=== PATIENT | female | born 2005 | race Caucasian/White ===

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

== ENCOUNTER 2025-01-22 12:46 | Outpatient (AMB) | payer OTHER, SELFPAY ==
--- NOTE | 2025-01-22 12:52 | A.OFFPC_ITS ---
Vital Signs 01/22/25 12:59 Height 5 ft 2 in Weight 143 lb 8 oz BMI 26.2 BP 116/70 Blood Pressure Location Lt brachial Position Sitting Respiration 12 Pulse 95 Pulse Source Pulse Oximeter Temp 96.9 F Temp Source Oral Pulse Oximetry (%) 97 Oxygen Delivery Method Room Air Intake Visit Reasons: getting control medicine Intake Note: Patient here for control meds, patient is unable to give urine sample. Medical Records Specialist Required: No Is last menstrual period known: Yes Last menstrual period: 01/20/25 Allergies No Known Allergies Allergy (Verified 01/22/25 13:12) Medication List - Last Reconciled 01/22/25 by ALLAN Ibrahim- No Known Home Meds Tobacco use date assessed: 01/22/25 Dental Screening Dental Screen Date: 01/22/25 Did you have a dental visit in the last 12 months?: Yes Did you have a dental problem in the last 6 months where you did not have access to dental care?: No Was dental information given to patient?: Patient has dentist HPI HPI Comments History of Present Illness Details 19 y/o F with PATRICK, MDD, Renal stones, bi lat congenital hip dysplasia Family hx: Mom: Bipolar, Anxiety, Depression Social: Living w/ Dad, who is [employer] Physical Education Aide Health Maintenance: Tdap declined flu declined Specialists: Psychiat[facility] History of Present Illness - The patient is a 19-year-old female pr esenting with menorrhagia. - Experiences excessively heavy menstrua l bleeding since menarche at age 11. - Has been on several oral contraceptive pills to manage symptoms, with effective but temporary results. - Current medication obtained through [facility]; however, future prescriptions require physician intervention due to insurance issues. - The patient avoids alternative c ontrol methods due to fear of pain, needles, and invasive procedures. Currently on Necon 0.5-35 with good effect. Would like to cont End last period on Wednesday. Has not missed any pills. Unable to void at time of visit for urine preg. Denies having sex since last period. 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 MDD/PATRICK stable w/o meds or counseling. cont to smoke marijuana for mood and back pain. May be getting job for [employer] but needs to be free from marijuana. she will work on this, Physical Exam General: Well developed, well nourished, in no acute distress. Appears stated age. Head: Normocephalic, atraumatic. Eyes: Pupils are equal, round and reactive to light and accommodation. Conjunctivae are clear. Lungs: Clear to auscultation bilaterally. No rales, rhonchi or wheeze noted. Good air flow in all mckeon. Heart: Regular rate and rhythm. No murmurs, click, rubs or gallops are noted. Psych: Mood and affect appropriate. Discussion Notes I discussed the patient's history of menorrhagia and current management with contraceptive pills. We talked about the effectiveness of combined oral contraceptives in reducing menstrual bleeding. I acknowledged the patient's fear of needles, invasive procedures, and concerns regarding dyspareunia. I also clarified that further evaluation by a hall supervisor could elucidate anatomical reasons for her discomfort during sexual activity, though she declined referral at this time. I explained the process for renewing her control via electronic prescription to both her local and mail-order pharmacy. She was guided to reach out if issues with insurance arise, as her coverage might require mail-order pharmacy use. Lastly, I advised her to book a routine wellness visit in a few months while feel free to contact the office sooner if needed. Assessment and Plan 1. Menorrhagia: The patient has menorrha bonny controlled with combined oral contraceptives. Currently, oral contraceptives are prescribed again, addressing the insurance requirement by sending it to both her local and mail-order pharmacy. She will continue monitoring symptoms and seek follow-up care if her condition requires reassessment. 2. Dyspareunia: Dyspareunia and associat ed discomfort relate to anatomic abnormalities resisted evaluation for at this time. Recommendations include avoiding painful positions and considering evaluation if her symptoms persist. Patient is educated on potential for future examinations to offer clarity and management options. 3. Fear of Procedures: The patient's hes itations regarding alternative control methods reflect an understandable concern over procedures and is respected. Options like implants or injections are discussed, reaffirming that oral contraceptives remain suitable for her current needs. She is reassured of availability to revisit alternative methods if her preferences change. 4. Mood - cont to monitor. 5. Marijauna cessation Patient Instructions - Continue taking your control pil l as prescribed for menorrhagia. - Check with both your local and mail-or jeet pharmacy regarding your prescription to avoid any delays. - Avoid sexual positions that cause disc omfort; consider OBGYN consultation if issues persist. - Return for a routine wellness visit in May or June or sooner if you experience any new or worsening symptoms. - Contact our office if you encounter an y issues with pharmacy coverage or need adjustments. Consent Patient was informed and verbally consented to the use of an ambient scribe for clinic note documentation during this visit. Total time spent caring for the patient today was 30 minutes. This includes time spent before the visit reviewing the chart, time spent during the visit, and time spent after the visit on documentation, reviewing laboratory results, diagnostic imaging, medications, performing a medically necessary evaluation, counseling on diagnoses, care coordination, ordering appropriate tests, ordering appropriate medications, review of tests performed by other providers, reporting test results with the patient, communication with other healthcare providers. [facility] Social History Housing: House Housing Other:: Living with Dad Patient Tobacco Use Status: Never used Tobacco e-Cigarette/Vaping Use: Currently Using Second Hand Smoke Exposure: Yes service: No Current occupational status: student Current occupation: [employer]; [employer] in [place] Current occupational exposures/hazards: No Cognitive needs: No Hearing needs: No Vision needs: No Female Reproductive History Menstrual Date of last menstrual period: 01/20/25 Questionnaire PHQ-9 Over the last 2 weeks, how often have you been bothered by any of the following problems? 1. Little interest or pleasure in doing things: not at all 2. Feeling down, depressed, or hopeless: several days 3. Trouble falling or staying asleep, or sleeping too much: several days 4. Feeling tired or having little energy: several days 5. Poor appetite or overeating: more than half the days 6. Feeling bad about yourself - or that you are a failure or have let yourself or your family down: not at all 7. Trouble concentrating on things, such as reading the newspaper or watching television: not at all 8. Moving or speaking so slowly that other people could have noticed. Or the opposite - being so fidgety or restless that you have been moving around a lot more than usual: not at all 9. Thoughts that you would be better off or of hurting yourself in some way: not at all Total score: 5 Depression Screening Interpretation: Positive Depression Screening Follow-up: Existing condition and Declines treatment Depression Screening Done: Yes 36665 - PHQ-9 Billing: Yes Source: Developed by Drs. Franck Krishnan, Kristi Mcleod, Pancho Serna and colleagues, with an educational melida from [email or web address]. Thrive Questionnaire Date Thrive assessed: 01/22/25 I am a: Patient What is your living situation today?: I have a steady place to live Within the past 12 months, did the food you bought not last and you didn't have the money to get more?: Never true Within the past 12 months, did you worry whether your food would run out before you got money to buy more?: Never true Do you have trouble paying for medicines?: No Do you have trouble getting transportation to medical appointments?: No Do you have trouble paying your heating and electricity bill?: No Do you have trouble taking care of your child, family member or friend?: No Do you have trouble with day-to-day activities such as bathing, preparing meals, shopping, managing finances, etc.?: No Are you currently unemployed and looking for a job?: No Are you interested in more education?: Yes Please select the resources that you would like help with: None Currently or been in a relationship where the following occur: No concerns reported THRIVE Score: 0 AUDIT C Alcohol Use Questionnaire (AUDIT-C) 1. How often do you have a drink containing alcohol?: Never 3. How often do you have six or more drinks on one occasion?: Never Total Score: 0 Score Reviewed/Action Taken: Yes PATRICK-7 AMB Questionnaire PATRICK-7 Date PATRICK - 7 assessed: 01/22/25 Feeling nervous, anxious, or on edge: 1 = Several days Not being able to stop or control worryin = Several days Worrying too much about different things: 1 = Several days Trouble relaxin = Several days Being so restless that it is hard to sit still: 1 = Several days Becoming easily annoyed or irritable: 2 = More than half the days Feeling afraid as if something awful might happen: 0 = Not at all Total PATRICK-7 score (0-4 normal; 5-9 mild; 10-14 moderate; 15-21 severe): 7 Source: Developed by Kristi Harper Harsha, Pancho Serna and colleagues, with an educational melida from [email or web address]. PATRICK-7 Assessment Billing PATRICK-7 Assessment Tool: PATRICK-7 Assessment 46431 Physical exam (Primary Care) Vital Signs: Last Vital Signs Temp 96.9 F 01/22/25 12:59 Pulse 95 01/22/25 12:59 Resp 12 01/22/25 12:59 BP 116/70 01/22/25 12:59 Pulse Ox 97 01/22/25 12:59 Oxygen Delivery Method Room Air 01/22/25 12:59 BMI result Body Mass Index 26.2 Tobacco/Smoking Status: Tobacco use Status Tobacco use date assessed 01/22/25 01/22/25 12:53 Patient Tobacco Use Status Never used Tobacco 01/22/25 12:53 e-Cigarette/Vaping Use Currently Using 01/22/25 12:53 PHQ-9: PHQ-9 Score PHQ-9: Total score 5 01/22/25 13:19 Depression Screening Interpretation: Positive Depression Screening Follow-up: Existing condition and Declines treatment Thrive Assessment: Date of Thrive Assessment Date Thrive assessed 01/22/25 01/22/25 12:53 Currently or been in a relationship where the following occur: No concerns reported Coding Level of Care Code Est Pt Level 4 (78637) Complex EM visit Add On G2211 Diagnoses Severe episode of recurrent major depressive disorder, without psychotic features F33.2 Major depression episode severity: severe Psychotic features: without psychotic features Marijuana use F12.90 Menorrhagia with regular cycle N92.0 Menorrhagia type: with regular cycle Dyspareunia in female N94.10 PATRICK (generalized anxiety disorder) F41.1 Influenza vaccination declined Z28.21 Tetanus, diphtheria, and acellular pertussis (Tdap) vaccination declined Z28.21 Additional Codes PATRICK-7 Assessment Billing - PATRICK-7 Assessment Tool: PATRICK-7 Assessment 34072 ([id number]) PHQ-9 - 63287 - PHQ-9 Billing: Yes ([id number]) Assessment & Plan Assessment & Plan (1) MDD (major depressive disorder), recurrent episode: Code(s): F33.9 - Major depressive disorder, recurrent, unspecified Category: Medical Qualifiers: Major depression episode severity: severe Psychotic features: without psychotic features Qualified Code(s): F33.2 - Major depressive disorder, recurrent severe without psychotic features (2) Marijuana use: Comment: Marijuana: Natural = Safe, Right? Marijuana is readily available to use in many states in the [facility]. Understanding the possible risks of use is important to ensure the safety. No matter how you use marijuana (smoke it, eat it, or apply to your skin), it may cause problems with both short term and termite control servicer use How marijuana affects your BRAIN: Potential effects from Short Term Use Poor focus, memory and reaction time Difficulty with problem solving Hallucinations, paranoia, anxiety Potential effects from Battery Container Tester Use Memory problems and trouble learning new things Depression, hallucinations, paranoia, anxiety, worsening PTSD symptoms addiction Brain. It is not safe to drive while on marijuana. It makes it hard to straw hat brim raiser operator distance, concentrate, react quickly to signals and sounds, be alert and coordinated. If alcohol is combined, this risk is even higher! In regular users, some of the effects from shelter use may last for days or even weeks after stopping marijuana. How inhaling marijuana affects your LUNGS: Inhaling harmful chemicals Gases Small particles Carcinogens (toxins linked to cancer) Breathing problems similar to tobacco smokers Daily cough with mucus Difficulty breathing Lung infections (bronchitis, pneumonia) Lungs How marijuana affects your HEART: Increases risk of heart attack Within the first hour of smoking Increases heart rate 20?100% increase after smoking Increase lasts up to three hours Changes in heart rhythm Feels like your heart skips a beat, or is fluttering, or beating too fast or too slow Heart Is it SAFE to use marijuana with other medications? A combination that can be concerning is the use of opioids and/or benzodiazepines with marijuana. Opioids + Benzodiazepines + Marijuana: Drowsiness: All three can cause drowsiness. Reaction time: All three can reduce reaction time. Do not drive or operate machinery. Overdose: Opioids and Benzodiazepines can cause reduced breathing and in some cases, breathing can stop and a person can . Marijuana containing higher levels of THC may cause difficulty with thinking and memory and this could result in medication errors where extra doses of opioids, benzodiazepines, or other medications may be taken. What is the harm? Example of Opioids Morphine (MS Contin?, Edith?) Oxycodone (Percocet?, OxyContin?) Hydrocodone (Vicodin?, [place]?) Fentanyl (Duragesic?) Methadone Heroin Example of Benzodiazepines Lorazepam (Ativan?) Diazepam (Valium?) Alprazolam (Xanax?) Clonazepam (Klonopin?) If you have specific questions about the safety of using marijuana with other medications, please contact your provider or pharmacist. Some marijuana users can become addicted! You can have problems with marijuana withdrawal. You may have withdrawal symptoms the day after you stop using. These can get worse 2 to 3 days after using and can take 1 to 2 weeks or longer to go away. Recovery and Treatment Contact your provider or health care team if you are having concerns about your marijuana use or to learn more about available treatment services. The marijuana plant is not an FDA-approved medicine: The U.S. Food and Drug Administration (FDA) has not approved the marijuana plant as a medication due to lack of studies on the risks and benefits. Marijuana contains over 100 chemical substances known as cannabinoids. Some of these, like tetrahydrocannabinol (THC), have mind altering effects and can be intoxicating. Cannabidiol (CBD), another cannabinoid, does not cause the same ?high? users of THC experience. THC has been studied for the treatment of several conditions, including nausea and increasing appetite. CBD is similarly being studied for a number of conditions, including childhood epilepsy and inflammation. What is different between the marijuana product I get from the marijuana shop and a prescription from the pharmacy? The right dose of any medicine is important. A specific dose of THC is approved to treat nausea, but high doses of THC may cause vomiting. The ingredients in a medicine must be measured and stay the same from one dose to the next. The marijuana plant contains unknown ingredients that change from plant to plant. This makes it hard to control the ?dose? of marijuana needed to treat a condition and use it in the same way we use other medicines. Future studies are ongoing to establish the role of the marijuana plant and the cannabinoids found in the plant for treatment of medical conditions. If you have questions about using a marijuana product for a medical condition, please discuss this with your medical provider to determine the most appropriate treatment for you. [place] Providers are not able to prescribe marijuana products. Information in this document was compiled by the [facility] of Excellence in Substance Abuse treatment and Education (CESTE). It contains information from factsheets by the National [place] on Drug Abuse (www.drugabuse.gov) and presentation by Radhika Corley, Radhika Ortega, & Jesika Goins (2010) entitled ?What providers need to know about cannabis use in Veterans with mental health conditions: Research, policy, practice,? and an additional reference: Mira Boone M.D., Francois Bell, Ph.D., Emile Son M.D., and Keysha Solorzano, Ph.D: Adverse Effects of Marijuana. N Engl J Med 2014; 370:4253-6783, April 12, 2014 DOI: 10.1056/WOSQat0814836. [facility] Academic Detailing Service Code(s): F12.90 - Cannabis use, unspecified, uncomplicated Category: Social Hx (3) Menorrhagia: Code(s): N92.0 - Excessive and frequent menstruation with regular cycle Category: Medical Qualifiers: Menorrhagia type: with regular cycle Qualified Code(s): N92.0 - Excessive and frequent menstruation with regular cycle (4) Dyspareunia in female: Code(s): N94.10 - Unspecified dyspareunia Category: Medical (5) PATRICK (generalized anxiety disorder): Code(s): F41.1 - Generalized anxiety disorder Category: Medical (6) Influenza vaccination declined: Code(s): Z28.21 - Immunization not carried out because of patient refusal Category: Medical (7) Tetanus, diphtheria, and acellular pertussis (Tdap) vaccination declined: Code(s): Z28.21 - Immunization not carried out because of patient refusal Category: Medical Plan . Medications: New norethindrone-ethin estradiol 0.5-35 mg-mcg (Necon) 1 tab PO DAILY 84 tabs 2RF norethindrone-ethin estradiol 0.5-35 mg-mcg (Necon) 1 tab PO DAILY 84 tabs 2RF
[2025-01-22 12:59] VITALS: BP 116/70; PULSE 95; RESP 12; TEMP 36.1; O2SAT 97; BMI 26.2
--- OUTSIDE RECORDS SUMMARY | 2025-01-22 14:49 | XMS_ITS | Encounter Summary ---
Author Organization [facility] Address [address] [place] [address] Phone Care Team Providers Care Job Placement Specialist Name Role Phone Provider, Padmini GOMES Primary Care Provider [phone] Encounter Details Date Type Department Care Team (Late st Contact Info) Description 10/31/2010 Documentation [facility] [place] Family Medicine [address] [place] [address] Family Medicine, Physician [address] [id number] Social History Tobacco Use Types Packs/Day Years Used Date Smoking Tobacco: Never Assessed Comments Unknown Sex and Gender Information Value Date Recorded Sex Assigned at Female 06/08/2020 5:08 PM EDT Legal Sex Female 5:09 PM EDT Gender Identity Female 06/08/2020 5:08 PM EDT Sexual Orientation Bisexual 06/08/2020 5: 08 PM EDT documented as of this encounter Plan of Treatment Not on file documented as of this encounter Visit Diagnoses Not on filedocumented in this encounter Care Teams Job Placement Specialist Relationship Specialty Start Date End Date Provider, MD Padmini [address] [place] [address] PCP - General Pediatrics 10/28/24 documented as of this encounter
--- OUTSIDE RECORDS SUMMARY | 2025-01-22 14:49 | XMS_ITS | Encounter Summary ---
Author Organization [facility] Address [address] [place] [phone] Phone Care Team Providers Care Geriatric Personal Care Aide Name Role Phone Provider, Padmini GOMES Primary Care Provider [phone] Encounter Details Date Type Department Care Team (Late st Contact Info) Description 06/24/2017 Conversion Encounter [facility] [place] [address] [place] [address] Social History Tobacco Use Types Packs/Day Years Used Date Smoking Tobacco: Never Comments:Never smoker Comments Unknown Sex and Gender Information Value [...] on filedocumented in this encounter Care Teams Geriatric Personal Care Aide Relationship Specialty Start Date End Date Provider, MD Padmini [address] [place] [phone] PCP - General Pediatrics 10/28/24 documented as of this encounter
--- OUTSIDE RECORDS SUMMARY | 2025-01-22 14:49 | XMS_ITS | Encounter Summary ---
Author Organization [facility] Address [address] [place] [address] Phone Care Team Providers Care Chemical Process Equipment Operator Name Role Phone Provider, Padmini GOMES Primary Care Provider [phone] Reason for Visit * Reason Comments Med Refill Encounter Details Date Type Department Care Team (Late st Contact Info) Description 05/02/2021 Refill [facility] [place] [address] [place] [address] Aakash Storm MD [address] [place] [address] Menorrhagia with regular cycle; Adolescent dysmenorrhea Social History Tobacco Use Types Packs/Day Years Used Date Smoking Tobacco: Never Comments:Never smoker Hunger/Food Answer Date Recorded In the last 12 months, did y ou or your family ever eat less than you felt you should because there wasn't enough money for food? No 05/17/2020 Stable Housing Answer Date Recorded Are you worried that in the next 2 months you may not have stable housing? No 05/17/2020 Transportation Concerns Answer Date Rec orded In the last 12 months, have you or your family ever had to go without healthcare because you didn't have a way to get there? No 05/17/2020 Hazards in Home Answer Date Recorded Think about the place you li ve. Do you have problems with any of the following? Pests (mice or roaches), mold, no/not working smoke detectors, water leaks, no window guards. No 2019 Financing Utilities Answer Date Recorde d In the last 12 months, has t he electric, gas, oil, or water company threatened to shut off your services in your home? No 05/17/2020 Safety at Home Answer Date Recorded Are you or your family worried about feeling saf e in your home? No 05/17/2020 Outside Support Answer Date Recorded Do you feel that you need mo re support from other people or programs to help you care for yourself or your family? No 05/17/2020 Understanding Health Concerns Answer Da te Recorded Do you need help understandi ng your or your child's healthcare needs (diagnosis, medications, plan, etc.)? No 05/17/2020 Financing Health Concerns Answer Date R ecorded In the last 12 months, was t here a time when your child needed to see a doctor or get medications or supplies but could not because of cost? No 05/17/2020 Missing School or Work Answer Date Vald rded Did you or your child miss s chool or work because of a health problem that could have been avoided? No 05/17/2020 Comments No Sex and Gender Information Value Date Recorded Sex Assigned at Female 06/08/2020 5:08 PM EDT Legal Sex Female 5:09 PM EDT Gender Identity Female 06/08/2020 5:08 PM EDT Sexual Orientation Bisexual 06/08/2020 5: 08 PM EDT documented as of this encounter Miscellaneous Notes * Telephone Encounter - Yelitza Washburn LPN - 05/03/2021 9:12 AM EDT Faxed refill request /pending pe 05/21/21 documented in this encounter Plan of Treatment Not on file documented as of this encounter Visit Diagnoses Diagnosis Menorrhagia with regular cycle Adolescent dysmenorrhea Dysmenorrhea documented in this encounter Care Teams Chemical Process Equipment Operator Relationship Specialty Start Date End Date Provider, MD Padmini [address] [place] [phone] PCP - General Pediatrics 10/28/24 documented as of this encounter
--- OUTSIDE RECORDS SUMMARY | 2025-01-22 14:49 | XMS_ITS | Clinical Summary ---
Author Organization [facility] Address [address] [place] [phone] Phone Care Team Providers Care Splunk Architect Name Role Phone Provider, Padmini GOMES Primary Care Provider [phone] Allergies No known active allergies Medications propranolol 10 MG tablet Take 10 mg by mouth 2 (two) times a day. 1 Active lamoTRIgine ER 200 MG tablet sustained-release 24 hour Take 1 tablet by mouth once daily. 1 Active Levonorgest-Eth Estrad -Day 0.1-0.02 & 0.01 MG tabletIndications: Oral contraceptive pill surveillance Take 1 tablet by mouth daily. 91 tablet 2 Active Active Problems Problem Noted Date Diagnosed Date Eating disorder 10/21/2021 Overview (10/22/2021): Though weight loss not extreme, has all the signs of eating disorder, per mom. Needs close follow up. Unfortunately, Romana totally uncooperative with history Assessment & Plan (12/02/2021 10:36 AM EST): Per Romana, has an insatiable appetite. Per mom, now eating better, eats good dinner. Mom to overhaul her diet. I encouraged her to have a family dinner, and to have her eat the same foods for meals as mom does; mom is in charge of this. Assessment & Plan (10/22/2021 9:48 AM EST): Romana should help with the grocery list and meal planning. Have family meals. Referred to Bess. If loses more weight, needs referral to eating disorders program. Will screen for electrolyte imbalance Oral contraceptive pill surveillance 10/21/2021 Overview (10/22/2021): Heavy painful menses on OCP Assessment & Plan (12/09/2021 6:54 PM EST): Pt reportedly no longer taking OCP due to nausea concerns. Suggest further f/up with PCP DG Assessment & Plan (12/02/2021 10:30 AM EST): Switched to new OCP, will hopefully not have the side effect of increased appetite, though you have in fact lost weight. Assessment & Plan (10/21/2021 5:18 PM EST): Begin Seasonale, let me know how it goes. Family history of hypercholesterolemia Overview (07/02/2021): In mom Chronic fatigue 06/17/2021 Overview (12/02/2021): Always tired. Suspect this is because of depression, but with wt gain, will r/o thyroid disease, vitamin d deficiency (eats poorly) , iron deficiency 11/29 still says she is always fatigued because I'm a lazy bum Assessment & Plan (12/02/2021 10:34 AM EST): You are not a lazy bum, but are good at using it as an excuse not to do things. Assessment & Plan (06/17/2021 9:58 PM EDT): See labs. Sleep disorder 05/02/2020 Overview (12/02/2021): Differences in history between mom's phone message: not sleeping well, clonidine doesn't help, and Romana's: not on clonidine, usually sleeps ok, sometimes not (vague as per usual) but sleep fine 10-5, and feels fine all day, vs dad: sleep is a challenge for her, ?any meds. Says is better now, with melatonin. Assessment & Plan (12/02/2021 10:31 AM EST): Continue with good sleep habits Assessment & Plan (10/21/2021 5:16 PM EST): Let me know how things are going. Assessment & Plan (06/17/2021 10:17 AM EDT): Better with melatonin, archie niño Anxiety 01/02/2020 Overview (12/02/2021): Afraid of needle entering my body . Was seeing Windy Serra x 5 visits. Did not work out. Now is anxious about being fat , and, not surprisingly, worries about her mom's mental health 11/29: Taking propranol for anxiety, mostly with social anxiety. Per SCARED. Not very verbal still, still irritable, but for about the first time, does relate to me, talks, somewhat. Assessment & Plan (08/23/2021 12:15 PM EDT): On Lamictal by another prescriber, has run out of meds. I agreed to prescribe 7 days for her, but she needs to reach med prescriber for further Rx (and I discussed need to call sooner than just a couple days before it runs out in the future). FYI to PCP as well. Assessment & Plan (06/17/2021 10:16 AM EDT): Takes propranolol prn Assessment & Plan (11/26/2020 3:35 PM EST): Discussed with Romana, follow up with nurse clinician and with me. Assessment & Plan (11/19/2020 5:04 PM EST): Being treated with two meds for mood, and one for sleep, mom likes her new psychiatric nurse clinician, in private practice. Assessment & Plan (06/29/2020 11:34 AM EDT): Doing well on mirtazapine, not in counseling, though I encouraged it Assessment & Plan (05/02/2020 5:01 PM EDT): Off of remeron; some of irritable mood may well be secondary to depression, though she denies it. Says did not like transition to [employer] (different than what she told me last virtual visit), does have new friends, has had ambivalence re sexual orientation, which may have added to stress for her. Assessment & Plan (03/08/2020 12:38 PM EDT): Is doing well, at home, per mom. Should see behavioral therapist. Will refer to Bess, who will have lots of Openings, specialized with teens Assessment & Plan (03/03/2020 10:38 PM EDT): Has more generalized anxiety per mom and per assessment at [facility] (per mom, I have not seen it), also has had positive SCARED. Per TEACH rounds over noon with our therapist Jovani from [facility], should have behavioral consultation. Assessment & Plan (01/02/2020 2:14 PM EST): Would be difficult to address, unless we build more rapport Learning disability 03/10/2019 Overview (11/19/2020): Has IEP, performing behind grade level, especially in math. Now has a private tutors and teachers, mom's cousin, in [place]. Is not meeting with counselor weekly, no social skills group, no smaller classes. Emails teachers for help; some help, some do. One teacher said he wouldn't respond because she didn't use proper grammar. Assessment & Plan (10/22/2021 9:44 AM EST): Continue IEP Assessment & Plan (11/19/2020 4:40 PM EST): Will call Karlee Eric, email: Her was Romana's Special embedded software architect in [facility]. Assessment & Plan (05/17/2020 11:09 AM EDT): Do some work over the summer to keep brain in shape Assessment & Plan (05/02/2020 5:02 PM EDT): Gets help in school, but often refused to accept it, difficult with on line learning. Should do work over summer. Assessment & Plan (03/08/2020 12:40 PM EDT): This is the patricia problem, troubles in school, though claiming is having no trouble working at home. Assessment & Plan (03/03/2020 10:34 PM EDT): Is probably performing at a higher level per mom, major problem is in math, but I've never received a copy of the IEP Assessment & Plan (01/02/2020 9:04 AM EST): Think about what you told me, about the ratings you told me: 6 vs 10: putting up with annoying kids, versus getting that trip with your aunt. Assessment & Plan (10/25/2019 9:48 AM EST): Homework for Romana: The help from your friend is great but not good enough because your grades are still not good. Think,on a scale of 1-10 how important it is for you to get good grades. On a scale of 1-10, how much do you dislike the kids in your special help class. Which is higher? What can you do to be able to study more? To mom: Set up a behavioral chart for grades. Be in frequent touch with teachers about homework and tests. If she gets a certain grade, she should get a reward, Grades below 60, she should lose cell phone privileges for example. Bring in the chart next visit. Mood disorder 03/10/2019 Overview (12/02/2021): Off of meds, conflicts at home. Should See a family therapist since won't see an individual therapist 10/28 may well be mood disorder, is on med for this though not working 11/29 seems to be doing a bit better, though still calls herself a lazy bum Is on unusual med combo, of lamictal (treats mood disorder) and propranolol as needed for depression. Assessment & Plan (12/02/2021 10:31 AM EST): Continue to see your nurse clinician. Assessment & Plan (10/22/2021 9:46 AM EST): Follow up with nurse clinician. Again suggest seeing Bess here. Assessment & Plan (06/17/2021 10:16 AM EDT): Is very depressed now. Refuses therapy. Would take fish oil 6 times a day, and get fresh air, think about your negative thoughts, are they accurate. Assessment & Plan (11/19/2020 5:02 PM EST): Tried seeing a therapist again, did not work out. Conflicts seem less of a problem, is very close to mom, who is understandably, quite depressed now with the stressors at work for [employer] with the pandemic. Has a close relationship with step dad and with friends. Still does not care for health professionals like me, which is fine, if she is able to make progress in school, and with her emotions. Assessment & Plan (05/17/2020 11:08 AM EDT): Doing fine on abilify alone. To begin theray Assessment & Plan (05/02/2020 4:58 PM EDT): Meds prescribed by clinician she is no longer seeing have really helped. But now is on only abilify, feels remeron was causing bloating, and weight gain. Is quite irritable today (a bit more than usual) but dad says doing well. To see Bess soon. Assessment & Plan (03/08/2020 12:39 PM EDT): I don't think this is really DMDD, [facility] Assessment & Plan (03/03/2020 10:36 PM EDT): On abilify and remeron since last year -- has helped, but discussed in TEACH rounds with team [facility], thought is that she has anxiety/depression and atypical anti psychotic drug is calming but probably not necessary. Assessment & Plan (01/02/2020 9:03 AM EST): On meds, is stable. Though mood in general still negative, has friends. Will continue meds Assessment & Plan (11/29/2019 10:30 AM EST): Is yañez at times, does not like therapy, says happiness is 4/10 but when I talk with Romana, has a nice life with good friends, activities, likes step dad, feels good about mom, dad, step dad. Assessment & Plan (10/25/2019 9:45 AM EST): 1. Continue meds 2. Work on play dates, going to movies, having fun with friends. 3. Use special play dates, and sleep overs as motivators. Attention deficit hyperactiv ity disorder (ADHD), combined type 10/13/2017 Overview (11/19/2020): Now seeing Abigail Darell, and on low dose med, in addition to mood stabilizer and med for sleep. Assessment & Plan (12/02/2021 10:35 AM EST): Is doing better in school, not failing now. Assessment & Plan (06/17/2021 10:12 AM EDT): Not an issue now. Assessment & Plan (05/17/2020 11:09 AM EDT): abilify has helped Assessment & Plan (05/02/2020 4:59 PM EDT): Clonidine, along with other meds was helping with attention; Romana says is off it now, and did well enough with online school, passed, though dad said struggled in school. Assessment & Plan (01/02/2020 9:04 AM EST): Abilify seems to help her ADD Assessment & Plan (11/29/2019 10:29 AM EST): With positive Vanderbilts, but difficult to adjust these meds, getting side effects from Abilify=increased appetite. Will call teachers. Reassess in a month. Assessment & Plan (10/25/2019 9:52 AM EST): Please get Vanderbilts done. We will address this more next time. Avoid artificial food colorings. I like the idea of reading to her. Kick her outside for walks, hikes. Set up the basketball hoop. Take trips to a [employer] or health club with her Assessment & Plan (03/10/2019 9:50 AM EDT): 1.Eat healthy foods, do not skip meals, avoid too much sugar and ALL ARTIFICIAL FOOD COLORINGS. 2. Get enough sleep, every night. 3. Get at least an hour of fresh air and exercise a day. 4. No more than 2 hours of screen time a day. 5. Maintain a structured schedule every day, with a quiet place to do homework. 6. Create a to do list to keep track of homework. 7. HOld meds for now 8. Complete teacher's and parent's Vanderbilts if not done in the last 6 months. 9. Read Addressing ADD Naturally if not read already. 10. Address any learning issues and any emotional problems. Assessment & Plan (12/09/2018 8:58 AM EST): Now off meds, will see with vanderbilts in two months Assessment & Plan (10/13/2017 2:07 PM EST): Consider increased guanfacine in the morning. Follow up with me if desired. Benign neoplasm of skin of trunk 07/10/2011 Assessment & Plan (06/17/2021 10:16 AM EDT): Is stable. Assessment & Plan (10/13/2017 2:07 PM EST): Suggest check by automotive service manager Resolved Problems Problem Noted Date Diagnosed Date Resolved Date Kidney stones 10/21/2021 12/02/2021 Overview (12/02/2021): Diagnosed in ED, familial. Has passed now. Never saw urology, Should do a metabolic work up to see if at risk for future stones. Never completed work up since no urine test done, but no recurrent symptoms. Reviewed labs that were done, normal. Assessment & Plan (12/02/2021 10:33 AM EST): Call for recurrent symptoms. Assessment & Plan (10/22/2021 9:45 AM EST): See labs Non-intractable vomiting with nausea 06/17/2021 12/02/2021 Overview (10/22/2021): ?from overeating sometimes, ?from med in past 10/28: Denies vomiting now, including self induced. In past, from kidney stones, per mom and pt Assessment & Plan (12/02/2021 10:36 AM EST): Now better. Assessment & Plan (10/21/2021 5:15 PM EST): Let me know if recurs Assessment & Plan (06/17/2021 10:21 AM EDT): Keep track, see me in a week Chronic abdominal pain 10/29/202010/21 Overview (10/21/2021): Periumbilical after eating, ?gas pains, ?functional, has signficant psyche hx, on meds, refusing counseling Is better now (10/28), she says Assessment & Plan (06/17/2021 9:56 PM EDT): This seems better. Assessment & Plan (11/26/2020 3:34 PM EST): Though stomach acid may certainly be involved, and famotidine 10mg bid may be helpful, the pain is certainly related to Romana's emotions, if not consciously, then unconsciously, as I explained to Romana. Assessment & Plan (11/19/2020 5:01 PM EST): Not mentioned as problem today. Assessment & Plan (10/29/2020 3:13 PM EST): Needs to be further evaluated. Will see soon. Weight gain 03/03/2020 05/02/2020 Overview (03/03/2020): Common on abiify, also may have more a body image issues because of extensive surgery when young Assessment & Plan (03/03/2020 10:39 PM EDT): Should eat less junk food, exercise more. Adolescent dysmenorrhea 01/02/202006/08 Overview (01/02/2020): Painful heavy periods Assessment & Plan (06/27/2020 12:25 PM EDT): Much better now, periods only for three days, cbc was fine Assessment & Plan (05/17/2020 11:07 AM EDT): Better now. Assessment & Plan (03/03/2020 10:32 PM EDT): Still heavy per patient (at end of visit, but only on new OCP a few months) Assessment & Plan (01/02/2020 9:11 AM EST): Take vitamin b all the time, acetaminophen, ibuprofen, chamomile tea OCP discussed, will begin Epistaxis 01/02/2020 11/19/2020 Overview (01/02/2020): will have her see ENT,exam normal Assessment & Plan (05/17/2020 11:08 AM EDT): Better now. Ok per ENT per virtual visit. Assessment & Plan (03/03/2020 10:33 PM EDT): ENT saw her for virtual visit and diagnosed nosebleeds Menorrhagia with regular cycle 01/02/2020 11/19/2020 Overview (01/02/2020): am a bit concerned re nose bleeds too, but is phobic for needle. Assessment & Plan (06/29/2020 11:34 AM EDT): Is better now on ocp Assessment & Plan (05/17/2020 11:07 AM EDT): Is better now Assessment & Plan (01/02/2020 2:19 PM EST): Counseled re OCP's, consents to use to help regulate period, and help with painful cramps. 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 It can lead to obesity and diabetes Assessment & Plan (05/02/2020 5:03 PM EDT): Now is normal wt range Assessment & Plan (11/29/2019 10:31 AM EST): Mild overweight, but in good shape, a bit obsessed about body image. Should relax, is in fine shape, though can join gym. Should have fruits, veggies as snacks. Assessment & Plan (10/25/2019 9:51 AM EST): To mom and dad: Do not have sweets, junk at home. Treat yourself at work. Exception (of course) Holidays. I will call dad. Junk food is not good for anyone. For stress at work/elsewhere: Develop good habits to deal with stress: Yoga, or meditation or walks or jogging or swimming for example. REMEMBER MODELING BEHAVIOR IS MORE IMPORTANT THAN TALKING TO ROMANA ABOUT IT. Developmental dysplasia of hip 06/02/2018 10/22/2021 Overview (10/22/2021): S/p bilateral rose osteotomies, 2009, now some risk of DJD per last [facility]'s note. Tends to sit a lot 10/28: Discharged from [facility]. Assessment & Plan (06/17/2021 10:18 AM EDT): Doing well. Follows up only prn at [facility]. Assessment & Plan (11/26/2020 3:36 PM EST): Now is fine, no further visits with [facility] required, but has led to concerns about her body integrity manifesting self as body image issues now. Counseled mom and Romana about this. Mom, a mental health professional, agreed. Assessment & Plan (12/09/2018 8:58 AM EST): See [facility] yearly Bipolar disorder, in partial remission, most recent episode depressed 10/13/2017 12/09/2018 Assessment & Plan (10/13/2017 2:06 PM EST): Follow up with psychiatrist, suggested [facility] but mom wants someone to come to school, no therapist, suggested follow up with me but tough for mom to take time off from work. Immunizations Immunization Administration Dates Next Due DTaP 06/09/2010 DTaP / Hep B / IPV 05/21/2006,03/22/2006, 006 DTaP 5 02/14/2007 HPV Vaccine 9 Valent 03/10/2019,06/02/2018 Hep A, ped/adol 06/02/2007,11/15/2006 Hep B, ped/adol 2005 Hib (HbOC) 02/14/2007 Hib (PRP-T) 05/21/2006,03/22/2006,01/19/2006 IPV 06/09/2010 Influenza Split 10/26/2012 Influenza, injectable, quadrivalent 08/28/2016 Influenza, injectable, quadr ivalent, preservative free 08/23/2021,10/13/2020,08/29/2019,11/04,10/13/2017 Influenza, injectable, trivalent 009,12/05/2007,11/15/2006,08/13 Influenza, intranasal, quadrivalent 08/21/2015,1 11/15/2013,08/28/2013 Influenza, intranasal, trivalent 07/10/2011 MMR 06/09/2010 MMRV 11/15/2006 Meningococcal Conj (Menactra) MCV4P 06/02/2018 Pneumococcal Conjugate 02/14/2007,2005,03/22/2006,01/19 Tdap 10/13/2017 Varicella 06/09/2010 Family History Medical History Relation Name Comments Hypertension Father Angel Anxiety disorder Mother Nadia Depression Mother Nadia Heart disease Other Relation Name Status Comments Father Angel Alive Father: Hyperte nsion Maternal Grandfather Alive Materna l grandfather: GERD Maternal Grandmother Alive Mother Nadia Alive Mother: Alive a nd well, GERD Other No family histo ry of Cancer, No family history of Asthma, No family history of ADD/ADHD, Family history of Obesity, Family history of Hyperlipidemia, Family history of Migraines, No family history of Sudden /HI under age 55, Family history of Depression, No family history of Strabismus, Family history of Developmental dislocation of hip, Family history of Diabetes mellitus, No family history of Thrombophilia, No family history of Deafness, No family history of CVA (Stroke), No family history of Seizure disorder Paternal Grandfather Alive Paternal Grandmother Alive Social History Tobacco Use Types Packs/Day Years Used Date Smoking Tobacco: Never Comments:Never smoker Hunger/Food Answer Date Recorded In the last 12 months, did y ou or your family ever eat less than you felt you should because there wasn't enough money for food? No 06/17/2021 Stable Housing Answer Date Recorded Are you worried that in the next 2 months you may not have stable housing? No 06/17/2021 Transportation Concerns Answer Date Rec orded In the last 12 months, have you or your family ever had to go without healthcare because you didn't have a way to get there? No 06/17/2021 Hazards in Home Answer Date Recorded Think about the place you li ve. Do you have problems with any of the following? Pests (mice or roaches), mold, no/not working smoke detectors, water leaks, no window guards. No 2020 Financing Utilities Answer Date Recorde d In the last 12 months, has t he electric, gas, oil, or water company threatened to shut off your services in your home? No 06/17/2021 Safety at Home Answer Date Recorded Are you or your family worried about feeling saf e in your home? No 06/17/2021 Outside Support Answer Date Recorded Do you feel that you need mo re support from other people or programs to help you care for yourself or your family? No 06/17/2021 Understanding Health Concerns Answer Da te Recorded Do you need help understandi ng your or your child's healthcare needs (diagnosis, medications, plan, etc.)? No 06/17/2021 Financing Health Concerns Answer Date R ecorded In the last 12 months, was t here a time when your child needed to see a doctor or get medications or supplies but could not because of cost? No 06/17/2021 Missing School or Work Answer Date Vlad rded Did you or your child miss s chool or work because of a health problem that could have been avoided? No 06/17/2021 Comments No Sex and Gender Information Value Date Recorded Sex Assigned at Female 06/08/2020 5:08 PM EDT Legal Sex Female 5:09 PM EDT Gender Identity Female 06/08/2020 5:08 PM EDT Sexual Orientation Bisexual 06/08/2020 5: 08 PM EDT Last Filed Vital Signs Vital Sign Reading Time Taken Comments Blood Pressure 133/75 12/08/2021 4:23 PM EST Pulse 91 12/08/2021 4:23 PM EST Temperature 37.3 ??C (99.2 ??F) 12/08/2021 4:23 PM ES T Respiratory Rate - - Oxygen Saturation 96% 12/01/2011 12:00 AM EST Inhaled Oxygen Concentration - - Weight 56.7 kg (125 lb) 12/08/2021 4:23 PM EST Height 156.2 cm (5' 1.5 ) 12/08/2021 4:23 PM EST Body Mass Index 23.24 12/08/2021 4:23 PM EST Body Mass Index Percentile 77.22% 12/08/2021 4:2 3 PM EST Growth Chart: [facility] (Girls, 2- 20 Years) Plan of Treatment Health Maintenance Due Date Last Done Comments Men B Vaccine (1 of 2 - Standard) 2021 Influenza Vaccines (#1) 2024 10/24/20, 08/23/2021, 10/13/2020, Additional history exists COVID-19 Vaccine ( season) 2024 10/24/2022, 07/09/2021, 06/18/2021 DTaP,Tdap,and Td Vaccines (7 - Td or Tdap) 10/13/2027 10/13/2017, 06/09/2010, 02/14/2007, Additional history exists Hepatitis B Vaccines Completed 05/21/2006, 03/22/2006, 01/19/2006, Additional history exists HIB Vaccines Completed 02/14/2007, 05/08, 03/22/2006, Additional history exists Pneumococcal Vaccine Completed 02/14/2007, 05/21/2006, 03/22/2006, Additional history exists Hepatitis A Vaccines Completed 06/02/2007, 11/15/19 07 IPV Vaccines Completed 06/09/2010, 05/08, 03/22/2006, Additional history exists MMR Vaccines Completed 06/09/2010, 11/15/2006 Varicella Vaccines Completed 06/09/2010, 11/15/2006 Meningococcal Vaccine Aged Out 06/02/2018 No luz elena keshav eligible based on patient's age to complete this topic HPV Vaccines Completed 03/10/2019, 06/02/2018 Procedures * Due to [place] state law, this organization might not be sharing sensitive test results. Procedure Name Priority Date/Time Associated Diagnosis Comments CHLAMYDIA AND GONORRHEA, AMPLIFIED Routine 06/17/2021 10:36 AM EDT Screening examination for bacterial and spirochetal disease from Last 3 Months or Most Recently Relevant to Health Maintenance Results * Due to [place] state law, this organization might not be sharing sensitive test results. * Chlamydia and Gonorrhoea, Amplified (06/17/2021 10:36 AM EDT) Chlamydia Trachomatis, DNA Probe NEGATIVE ([facility]G) [facility] Comment: No Chlamydia Trachomatis RNA detected in this patient's sample ? (REFERENCE RANGE/NORMAL VALUE: NOT DETECTED) ? Note: This test uses street light mechanic- mediated amplification method to detect rRNA from C. Trachomatis URINE GC AMP PROBE NEGATIVE (NEG) [facility] Comment: No Neisseria Gonorrhoeae RNA detected in this patient's sample ? (REFERENCE RANGE/NORMAL VALUE: NOT DETECTED) ? NOTE: This test uses street light mechanic-mediated amplification method to detect rRNA from N.Gonorrhoeae. A negative result does not preclude infection. In the case of a negative urine result, testing of an endocervical(female) or urethral (male) specimen is recommended if there is high clinical suspicion of infection. Due to very high sensitivity of Nucleic Acid Amplification Test, false positive results may occur. Therefore, specimen handling is extremely important. In patients in whom the disease is unlikely, additional sample for testing should be considered after an initial positive result. The performance characteristics of this test have not been evaluated in children. The Aptima Combo2 assay is not intended for the evaluation of suspected sexual abuse or for other medico-legal indications. The ordering provider should assess if the patient had consensual sex without risk of sexual abuse. Consult the [facility] if needed. Contact phone number . Therapeutic failure or success cannot be determined with the Aptima Combo2 assay since nucleic acid may persist following appropriate antimicrobial therapy. The Centers for Disease Control and Prevention (CDC) recommends confirmatory retesting using culture or a different nucleic acid amplification test when positive results occur, if indicated. Testing performed or reported by [facility], a Service of [facility], [address] [place] [address] Ben Goncalves MD, Criminology Teacher Urine 06/17/2021 10:3 6 AM EDT 06/18/2021 1:35 AM EDT us Aakash Storm MD LAB MICROBIOLOGY - GENERAL OR DERABLES Final Result Performing Organization Address City/State/ZIP Co ut Phone Number [facility] from Last 3 Months or Most Recently Relevant to Health Maintenance Care Teams Splunk Architect Relationship Specialty Start Date End Date Provider, MD Padmini [address] [place] [address] PCP - General Pediatrics 10/28/24
--- OUTSIDE RECORDS SUMMARY | 2025-01-22 14:49 | XMS_ITS | Clinical Summary ---
Author Organization [facility] Address [address] [place] [address] Care Team Providers Care Network Announcer Name Role Phone Aakash Storm MD Primary Care Provider [phone] Allergies No known active allergies Medications QUEtiapine XR (SEROquel XR) 50 mg 24 hr tablet Take 50 mg by mouth at bedtime. 06/20/2024 Active levonorgestreL-e thinyl estrad (Vienva) 0.1-20 mg-mcg tablet Take 1 tablet by mouth in the morning. 05/23/2020 Active Active Problems Problem Noted Date Diagnosed Date Anxiety 01/02/2020 Overview (08/14/2024): Afraid of needle entering my body . Was seeing Windy Serra x 5 visits. Did not work out. Now is anxious about being fat , and, not surprisingly, worries about her mom's mental health 11/29: Taking propranol for anxiety, mostly with social anxiety. Per [facility]. Not very verbal still, still irritable, but for about the first time, does relate to me, talks, somewhat. Attention deficit hyperactiv ity disorder (ADHD), combined type 10/13/2017 Overview (08/14/2024): Now seeing Abigail Lozoya, and on low dose med, in addition to mood stabilizer and med for sleep. Social History Tobacco Use Types Packs/Day Years Used Date Smoking Tobacco: Never Assessed Comments Unknown Sex and Gender Information Value Date Recorded Sex Assigned at Female 08/17/2022 8:22 PM EDT Legal Sex Female 8:22 PM EDT Gender Identity Not on file Sexual Orientation Not on file Last Filed Vital Signs Vital Sign Reading Time Taken Comments Blood Pressure - - Pulse - - Temperature - - Respiratory Rate - - Oxygen Saturation - - Inhaled Oxygen Concentration - - Weight 63.5 kg (139 lb 15.9 oz) 024 11:33 AM EDT Height 157.5 cm (5' 2 ) 08/14/2024 11:3 3 AM EDT Body Mass Index 25.6 08/14/2024 11:33 AM EDT Body Mass Index Percentile 83.41% 08/14 11:33 AM EDT Growth Chart: [facility] (Girls, 2- 20 Years) Plan of Treatment Not on file Insurance [employer] CHOICE POS II Care Teams Network Announcer Relationship Specialty Start Date End Date Aakash Storm MD [address] [place] [address] [place] [address] PCP - General 03/11/22
--- OUTSIDE RECORDS SUMMARY | 2025-01-22 14:49 | XMS_ITS | Encounter Summary ---
Author Organization [facility] Address [address] [place] [address] Phone Care Team Providers Care Pharmacy Technician Assistant Name Role Phone Provider, Padmini GOMES Primary Care Provider [phone] Encounter Details Date Type Department Care Team (Late st Contact Info) Description 12/11/2011 Documentation [facility] [place] [address] [place] [address] Family Medicine, Physician [address] [id number] Social History Tobacco Use Types Packs/Day Years [...] on filedocumented in this encounter Care Teams Pharmacy Technician Assistant Relationship Specialty Start Date End Date Provider, MD Padmini [address] [place] [address] PCP - General Pediatrics 10/28/24 documented as of this encounter
--- OUTSIDE RECORDS SUMMARY | 2025-01-22 14:49 | XMS_ITS | Encounter Summary ---
Author Organization [facility] Address [address] [place] [address] Phone Care Team Providers Care Crop Puller Name Role Phone Provider, Padmini GOMES Primary Care Provider [phone] Encounter Details Date Type Department Care Team (Late st Contact Info) Description 04/07/2017 [place] [facility] [place] [address] [place] [address] Family Medicine, Physician [address] [place], [place] [address] Social History Tobacco Use Types Packs/Day Years [...] on filedocumented in this encounter Care Teams Crop Puller Relationship Specialty Start Date End Date Provider, MD Padmini [address] [place] [address] PCP - General Pediatrics 10/28/24 documented as of this encounter
--- OUTSIDE RECORDS SUMMARY | 2025-01-22 14:49 | XMS_ITS | Encounter Summary ---
Author Organization [facility] Address [address] [place] [address] Phone Care Team Providers Care Manager Urology Name Role Phone Provider, Padmini GOMES Primary Care Provider [phone] Encounter Details Date Type Department Care Team (Late st Contact Info) Description 04/06/2017 [place] [facility] [place] [address] [place] [address] Family Medicine, Physician [address] [place], [place] [address] Social History Tobacco Use Types Packs/Day Years [...] on filedocumented in this encounter Care Teams Manager Urology Relationship Specialty Start Date End Date Provider, MD Padmini [address] [place] [address] PCP - General Pediatrics 10/28/24 documented as of this encounter
--- OUTSIDE RECORDS SUMMARY | 2025-01-22 14:49 | XMS_ITS | Encounter Summary ---
Author Organization [facility] Address [address] [place] [address] Phone Care Team Providers Care Specialty Trimmer Name Role Phone Provider, Padmini GOMES Primary Care Provider [phone] Reason for Visit * Reason Comments Med Refill Encounter Details Date Type Department Care Team (Late st Contact Info) Description 10/20/2017 Refill [facility] [place] [address] [place] [address] Aakash Storm MD [address] [place] [address] Encounter for routine child health examination without abnormal findings (Primary Dx) Social History Tobacco Use Types Packs/Day Years Used Date Smoking Tobacco: Never Comments:Never smoker Comments No Sex and Gender Information Value Date Recorded Sex Assigned at Female 06/08/2020 5:08 PM EDT Legal Sex Female 5:09 PM EDT Gender Identity Female 06/08/2020 5:08 PM EDT Sexual Orientation Bisexual 06/08/2020 5: 08 PM EDT documented as of this encounter Miscellaneous Notes * Telephone Encounter - Karlee Menjivar LPN - 10/21/2017 8:53 AM EST Pharm fax refill request fluoride. Per office standing orders, eRx sent 90 day supply. Please sign off. EH documented in this encounter Plan of Treatment Not on file documented as of this encounter Visit Diagnoses Diagnosis Encounter for routine child health examination without abnormal findings- Primary documented in this encounter Care Teams Specialty Trimmer Relationship Specialty Start Date End Date Provider, MD Padmini [address] [place] [address] [place] [phone] PCP - General Pediatrics 10/28/24 documented as of this encounter
== END 2025-01-22 17:05 ==
LOC: HO.HMCFM 12:47
PROVIDERS: PCP Nurse Practitioner Family; Visit Provider Nurse Practitioner Family
DX: F33.2 Major depressive disorder, recurrent severe without psychotic features (principal); F12.90 Cannabis use, unspecified, uncomplicated; N92.0 Excessive and frequent menstruation with regular cycle; N94.10 Unspecified dyspareunia; F41.1 Generalized anxiety disorder; Z28.21 Immunization not carried out because of patient refusal

== ENCOUNTER → 2025-01-22 12:46 | Outpatient (BNVA) | payer OTHER, SELFPAY | PROVIDERS: PCP Nurse Practitioner Family; Visit Provider Nurse Practitioner Family | DX: F33.2 Major depressive disorder, recurrent severe without psychotic features (principal); F12.90 Cannabis use, unspecified, uncomplicated; N92.0 Excessive and frequent menstruation with regular cycle; N94.10 Unspecified dyspareunia; F41.1 Generalized anxiety disorder; Z28.21 Immunization not carried out because of patient refusal | CPT/HCPCS: 96127 ==

== ENCOUNTER 2025-07-18 15:10 | Outpatient (REF) | payer OTHER, SELFPAY ==
--- OUTSIDE RECORDS SUMMARY | 2025-07-18 18:19 | XMS_ITS | Encounter Summary ---
Author Organization [facility] Address [address] [place] [address] Phone Care Team Providers Care Constitutional Law Professor Name Role Phone Provider, Padmini GOMES Primary Care Provider [phone] Encounter Details Date Type Department Care Team (Late st Contact Info) Description 12/11/2011 Documentation [facility] [place] [address] [place] [address] Family Medicine, Physician [address] [place] [place], [place] [phone] Social History Tobacco Use Types Packs/Day Years [...] on filedocumented in this encounter Care Teams Constitutional Law Professor Relationship Specialty Start Date End Date Provider, MD Padmini [address] [place] [address] PCP - General Pediatrics 10/28/24 documented as of this encounter
--- OUTSIDE RECORDS SUMMARY | 2025-07-18 18:19 | XMS_ITS | Encounter Summary ---
Author Organization [facility] Address [address] [place] [address] Phone Care Team Providers Care Agricultural Engineer Name Role Phone Provider, Padmini GOMES Primary Care Provider [phone] Reason for Visit * Reason Comments Med Refill Encounter Details Date Type Department Care Team (Late st Contact Info) Description 10/20/2017 Refill [facility] - [address] [address] Aakash Storm MD Encounter for routine child health examination without [...] Primary documented in this encounter Care Teams Agricultural Engineer Relationship Specialty Start Date End Date Provider, MD Padmini [address] [place] [address] PCP - General Pediatrics 10/28/24 documented as of this encounter
--- OUTSIDE RECORDS SUMMARY | 2025-07-18 18:19 | XMS_ITS | Encounter Summary ---
Author Organization [facility] Address [address] [place] [address] Phone Care Team Providers Care Review Specialist Name Role Phone Provider, Padmini GOMES Primary Care Provider [phone] Encounter Details Date Type Department Care Team (Late st Contact Info) Description 04/06/2017 Documentation [facility] [place] [address] [place] [address] Family Medicine, Physician [address], [place] [phone] Social History Tobacco Use Types Packs/Day Years [...] on filedocumented in this encounter Care Teams Review Specialist Relationship Specialty Start Date End Date Provider, MD Padmini [address] [place] [address] PCP - General Pediatrics 10/28/24 documented as of this encounter
--- OUTSIDE RECORDS SUMMARY | 2025-07-18 18:19 | XMS_ITS | Clinical Summary ---
Author Organization [facility] Address [address] [place] [address] Care Team Providers Care Special Day Class Teacher Name Role Phone Aakash Storm MD Primary Care Provider [phone] Allergies No known active allergies Medications QUEtiapine [...] 83.41% 08/14 11:33 AM EDT Growth Chart: [facility] (Girls, 2- 20 Years) Plan of Treatment Not on file Insurance [employer] CHOICE POS II Care Teams Special Day Class Teacher Relationship Specialty Start Date End Date Aakash Storm MD [address] [place] [address] [place] [address] PCP - General 03/11/22
--- OUTSIDE RECORDS SUMMARY | 2025-07-18 18:19 | XMS_ITS | Encounter Summary ---
Author Organization [facility] Address [address] [place] [address] Phone Care Team Providers Care Manager Private Name Role Phone Provider, Padmini GOMES Primary Care Provider [phone] Encounter Details Date Type Department Care Team (Late st Contact Info) Description 10/31/2010 Documentation [facility] [place] [address] [place] [address] Family Medicine, Physician [address], [place] [phone] Social History Tobacco Use Types Packs/Day Years [...] filedocumented in this encounter Care Teams Manager Private Relationship Specialty Start Date End Date Provider, MD Padmini [address] [place] [address] PCP - General Pediatrics 10/28/24 documented as of this encounter
--- OUTSIDE RECORDS SUMMARY | 2025-07-18 18:19 | XMS_ITS | Encounter Summary ---
Author Organization [facility] Address [address] [place] [address] Phone Care Team Providers Care Client Services Account Manager Name Role Phone Provider, Padmini GOMES Primary Care Provider [phone] Encounter Details Date Type Department Care Team (Late st Contact Info) Description 06/24/2017 Conversion Encounter [facility] [place] [address] [place] [address] Social History Tobacco Use Types Packs/Day Years [...] on filedocumented in this encounter Care Teams Client Services Account Manager Relationship Specialty Start Date End Date Provider, MD Padmini [address] [place] [address] PCP - General Pediatrics 10/28/24 documented as of this encounter
--- OUTSIDE RECORDS SUMMARY | 2025-07-18 18:19 | XMS_ITS | Encounter Summary ---
Author Organization [facility] Address [address] [place] [address] Phone Care Team Providers Care Building Operator Name Role Phone Provider, Padmini GOMES Primary Care Provider [phone] Encounter Details Date Type Department Care Team (Late st Contact Info) Description 04/07/2017 Documentation [facility] [place] [address] [place] [address] Family Medicine, Physician [address] [place], [place] [address] Social History Tobacco Use Types Packs/Day Years [...] on filedocumented in this encounter Care Teams Building Operator Relationship Specialty Start Date End Date Provider, MD Padmini [address] [place] [address] PCP - General Pediatrics 10/28/24 documented as of this encounter
--- OUTSIDE RECORDS SUMMARY | 2025-07-18 18:19 | XMS_ITS | Encounter Summary ---
Author Organization [facility] Address [address] [place] [address] Phone Care Team Providers Care Master Baker Name Role Phone Provider, Padmini GOMES Primary Care Provider [phone] Reason for Visit * Reason Comments Med Refill Encounter Details Date Type Department Care Team (Late st Contact Info) Description 05/02/2021 Refill [facility] [place] [address] [place] [address] Aakash Storm MD Menorrhagia with regular cycle; Adolescent dysmenorrhea Social [...] 05/17/2020 Missing School or Work Answer Date Vlad [...] Dysmenorrhea documented in this encounter Care Teams Master Baker Relationship Specialty Start Date End Date Provider, MD Padmini [address] [place] [phone] PCP - General Pediatrics 10/28/24 documented as of this encounter
--- OUTSIDE RECORDS SUMMARY | 2025-07-18 18:19 | XMS_ITS | Clinical Summary ---
Author Organization [facility] Address [address] [place] [address] Phone Care Team Providers Care Boiling House Oiler Name Role Phone Provider, Padmini GOMES Primary Care Provider [phone] Allergies No known active allergies Medications propranolol [...] it. Says did not like transition to CPM Braxis (different than what she told me last [...] anxiety per mom and per assessment at [facility] (per mom, I have not seen it), also has had positive SCARED. Per TEACH rounds over noon with our therapist Jovani from [facility], should have behavioral consultation. Assessment & Plan (01/02/2020 2:14 PM EST): Would be difficult to address, unless we build more rapport Learning disability 03/10/2019 Overview (11/19/2020): Has IEP, performing behind grade level, especially in math. Now has a flat sorting machine clerk, mom's cousin, in [place]. Is not meeting with counselor weekly, no social skills group, no smaller classes. Emails teachers for help; some help, some do. One teacher said he wouldn't respond because she didn't use proper grammar. Assessment & Plan (10/22/2021 9:44 AM EST): Continue IEP Assessment & Plan (11/19/2020 4:40 PM EST): Will call Karlee Eric, email: Her was Romana's Special educational aide in [facility]. Assessment & Plan (05/17/2020 11:09 AM EDT): [...] the basketball hoop. Take trips to a [employer] or health club with her Assessment & [...] (10/13/2017 2:07 PM EST): Suggest check by ms sql developer Resolved Problems Problem Noted Date Diagnosed Date [...] now some risk of DJD per last [facility]'s note. Tends to sit a lot 10/28: Discharged from [facility]. Assessment & Plan (06/17/2021 10:18 AM EDT): Doing well. Follows up only prn at [facility]. Assessment & Plan (11/26/2020 3:36 PM EST): Now is fine, no further visits with [facility] required, but has led to concerns about her body integrity manifesting self as body image issues now. Counseled mom and Romana about this. Mom, a mental health professional, agreed. Assessment & Plan (12/09/2018 8:58 AM EST): See [facility] yearly Bipolar disorder, in partial remission, most recent episode depressed 10/13/2017 12/09/2018 Assessment & Plan (10/13/2017 2:06 PM EST): Follow up with psychiatrist, suggested Joey Ortega and stefano but mom wants someone to come to school, no therapist, suggested follow up with me but tough for mom to take time off from work. Encounters Date Type Department Care Team Description 05/31/2025 Telephone [facility] [place] [address] [place] [address] Provider, MD Padmini medical records from Last 3 Months Immunizations Immunization Administration Dates Next Due DTaP [...] of Migraines, No family history of Sudden /TN under age 55, Family history of Depression, [...] 91 12/08/2021 4:23 PM EST Temperature 37.3 C (99.2 F) 12/08/2021 4:23 PM EST Respiratory Rate - - Oxygen Saturation 96% 12/01/2011 12:00 AM EST Inhaled Oxygen Concentration - - Weight 56.7 kg (125 lb) 12/08/2021 4:23 PM EST Height 156.2 cm (5' 1.5 ) 12/08/2021 4:23 PM EST Body Mass Index 23.24 12/08/2021 4:23 PM EST Body Mass Index Percentile 77.22% 12/08/2021 4:2 3 PM EST Growth Chart: CDC (Girls, 2- 20 Years) Plan of Treatment Health Maintenance Due Date Last Done Comments Men B Vaccine (1 of 2 - Standard) 2021 Influenza Vaccines (#1) 2025 10/24/20 22, 08/23/2021, 10/13/2020, Additional history exists COVID-19 Vaccine ( - season) 2025 10/24/2022, 07/09/2021, 06/18/2021 DTaP,Tdap,and Td Vaccines (7 [...] Completed 03/10/2019, 06/02/2018 Procedures * Due to [place] state law, this organization might not be sharing sensitive test results. Procedure Name Priority Date/Time Associated Diagnosis Comments CHLAMYDIA AND GONORRHEA, AMPLIFIED Routine 06/17/2021 10:36 AM EDT Screening examination for bacterial and spirochetal disease from Last 3 Months or Most Recently Relevant to Health Maintenance Results * Due to [place] state law, this organization might not be sharing sensitive test results. * Chlamydia and Gonorrhoea, Amplified (06/17/2021 10:36 AM EDT) Chlamydia Trachomatis, DNA Probe NEGATIVE (NEG) [facility] Comment: No Chlamydia Trachomatis RNA detected in this patient's sample (REFERENCE RANGE/NORMAL VALUE: NOT DETECTED) Note: This test uses frame opener- mediated amplification method to detect rRNA from C. Trachomatis URINE GC AMP PROBE NEGATIVE (NEG) [facility] Comment: No Neisseria Gonorrhoeae RNA detected in this patient's sample (REFERENCE RANGE/NORMAL VALUE: NOT DETECTED) NOTE: This test uses frame opener-mediated amplification method to detect rRNA from N.Gonorrhoeae. [...] without risk of sexual abuse. Consult the [facility] if needed. Contact phone number . Therapeutic failure or success cannot be determined with the Aptima Combo2 assay since nucleic acid may persist following appropriate antimicrobial therapy. The Centers for Disease Control and Prevention (CDC) recommends confirmatory retesting using culture or a different nucleic acid amplification test when positive results occur, if indicated. Testing performed or reported by [facility], a Service of [facility], [address] [place] [address] Ben Goncalves MD, Veterinary Attendant Urine 06/17/2021 10:3 6 AM EDT 06/18/2021 1:35 AM EDT us Aakash Storm MD LAB MICROBIOLOGY - GENERAL OR DERABLES Final Result [facility] from Last 3 Months or Most Recently Relevant to Health Maintenance Care Teams Boiling House Oiler Relationship Specialty Start Date End Date Provider, MD Padmini [address] [place] [phone] PCP - General Pediatrics 10/28/24
[2025-07-18 18:42] LABS: Appearance Urine Clear; Glucose Urine UA Negative (Negative); PH 6.0 (5.0-9.0); Specific Gravity - Urine 1.010 (1.005-1.025)
[2025-07-19 00:26] LABS: CT PCR Urine NOT DETECTED (Not Detect.); NG PCR Urine NOT DETECTED (Not Detect.)
== END 2025-07-18 15:11 | disposition home or self-care (01) ==
LOC: HO.WFDLDS 15:10
PROVIDERS: Visit Provider Nurse Practitioner Family
DX: Z30.41 Encounter for surveillance of contraceptive pills (principal); N39.0 Urinary tract infection, site not specified; R30.0 Dysuria
CPT/HCPCS: 81003; 87491; 87591

== ENCOUNTER 2025-07-18 15:47 | Outpatient (AMB) | payer OTHER, SELFPAY ==
--- NOTE | 2025-07-18 15:48 | MHC.PC.OV ---
Intake Visit Reasons: Urinary tract infection Allergies No Known Allergies Allergy (Verified 07/18/25 15:49) Medication List - Last Reconciled 07/18/[address] [facility] norethindrone-ethin estradiol 0.5-35 mg-mcg (Necon) 1 tab PO DAILY Tobacco use date assessed: 01/22/25 Dental Screening Dental Screen Date: 01/22/25 HPI HPI Comments History of Present Illness Details 19 y/o F with PATRICK, MDD, Renal stones, bilat congenital hip dysplasia CC: UTI Sx started Wednesday of last week. Sx: urinary freq., feeling of incomplete bladder emptying, suprapubic pain. Went to [facility], Sat. tested + at home. Went to on Wednesday ([facility]) Tested + Given AB (Nitrofurantoin) since Wednesday, tomorrow is last dose. She cont to have the same sx without relief. Using APAP and NSAIDS. Normal po intake Denies fever. + chills. Denies n/v, chance of , vaginal discharge. LMP 2 weeks ago, twice last month on OCP. Needs refill on OCP. Physical Exam Limited physical exam was conducted Awake alert NAD Speaking in full sentences Engaging, appropriate Skin pink warm and dry Mood and affect appropriate Results - Labs: UA CC CT NG pending Assessment and Plan 1. Urinary Tract Infection (UTI) - Persistent symptoms; urine culture pending. Cont current AB for now. - Pyridium prescribed for pain relief. - Monitor culture results to adjust treatment. - OCP refill sent - Hydrate well. - Work note sent to portal Patient was given time to ask questions. All questions were answered to their satisfaction. Telehealth Attestation This visit was conducted via telehealth, and the information documented accurately reflects the encounter and patient-reported information. The patient has been explained that this is an interactive (audio/video) telehealth encounter and what that consists of. The patient understands and wishes to proceed. [employer] platform was used. Total time spent caring for the patient today was 22 minutes. This includes time spent before the visit reviewing the chart, time spent during the visit, and time spent after the visit on documentation, reviewing laboratory results, diagnostic imaging, medications, performing a medically necessary evaluation, counseling on diagnoses, care coordination, ordering appropriate tests, ordering appropriate medications, review of tests performed by other providers, reporting test results with the patient, communication with other healthcare providers. 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 Franck Krishnan, Kristi Mcleod, Pancho Serna and colleagues, with an educational melida from [employer]. Physical exam (Primary Care) Tobacco/Smoking Status: Tobacco use Status Tobacco use date assessed 01/22/25 01/22/25 12:53 Patient Tobacco Use Status Never used Tobacco 01/22/25 12:53 e-Cigarette/Vaping Use Currently Using 01/22/25 12:53 Thrive Assessment: Date of Thrive Assessment Date Thrive assessed 01/22/25 01/22/25 12:53 Telehealth Telehealth Telehealth Platform: [facility] Location of provider rendering services: practice address Location of patient: address on file Patient Identification confirmed using: Name, : Yes Telehealth method: video Patient verbally consented to treatment: Yes Patient verbally consented to billing insurance company: Yes Patient informed of any privacy concerns related to visit: Yes Minutes spent on Phone/Video with Pt.: 11 Coding Level of Care Code Tele Est Pt Level 3 (29869) Complex EM visit Add On G2211 Diagnoses Urinary tract infection without hematuria, site unspecified N39.0 Urinary tract infection type: site unspecified Hematuria presence: without hematuria Dysuria R30.0 Oral contraceptive use Z30.41 Assessment & Plan Assessment & Plan (1) UTI (urinary tract infection): Code(s): N39.0 - Urinary tract infection, site not specified Category: Medical Qualifiers: Urinary tract infection type: site unspecified Hematuria presence: without hematuria Qualified Code(s): N39.0 - Urinary tract infection, site not specified (2) Dysuria: Code(s): R30.0 - Dysuria Category: Medical (3) Oral contraceptive use: Code(s): Z30.41 - Encounter for surveillance of contraceptive pills Category: Social Hx Plan . Medications: New phenazopyridine (Pyridium) 100 mg PO TID PRN 6 tabs 0RF pain 6 doses Refilled norethindrone-ethin estradiol 0.5-35 mg-mcg (Necon) 1 tab PO DAILY 84 tabs 2RF
== END 2025-07-18 16:02 | disposition home or self-care (01) ==
LOC: HO.HMCFM 15:47
PROVIDERS: PCP Nurse Practitioner Family; Visit Provider Nurse Practitioner Family
DX: N39.0 Urinary tract infection, site not specified (principal); R30.0 Dysuria; Z30.41 Encounter for surveillance of contraceptive pills

== ENCOUNTER 2025-07-27 13:27 | Outpatient (AMB) | payer OTHER, SELFPAY ==
--- NOTE | 2025-07-27 13:30 | A.OFFPC_ITS ---
Vital Signs 07/27/25 13:37 07/27/25 14:17 Height 5 ft 2 in Weight 138 lb 6 oz BMI 25.3 BP 118/72 Blood Pressure Location Rt brachial Position Sitting Respiration 12 Pulse 113 H 95 Pulse Source Pulse Oximeter Auscultation Temp 97.9 F Temp Source Temporal Artery Scan Pulse Oximetry (%) 97 Oxygen Delivery Method Room Air Intake Visit Reasons: bad cough Intake Note: Romana presents in the office today for a cough. Patient is smoker and she is worried about her lungs. Allergies No Known Allergies Allergy (Verified 07/27/25 13:32) Tobacco use date assessed: 01/22/25 Dental Screening Dental Screen Date: 07/27/25 Did you have a dental visit in the last 12 months?: Yes Did you have a dental problem in the last 6 months where you did not have access to dental care?: No Was dental information given to patient?: Patient has dentist HPI HPI Comments History of Present Illness Details 19 y/o F with PATRICK, MDD, Renal stones, bi lat congenital hip dysplasia Here today wants lungs checked Smokes MJ via vape and otherwise Has a cough, Dad worried about it Has been on going w/o other constitutional sx. Feels SOB when climbing stairs. does not have asthma Declined flu shot. Having episodes of feeling out of body which result in vomiting have been ongoing for years happening every few months wonders why this is happening in school, working, has boyfriend Exam Awake alert NAD PERRLA, EOMI RRR LS CTAB Skin PWD Mood and affect appropriate Plan: Smoking ed. provided Start combivent ok to use as maintenance and rescue Reduce stressors; log episodes; if cont, consider referral back to Psych. RTO 6 mo for CPE sooner PRN Total time spent caring for the patient today was 30 minutes. This includes time spent before the visit reviewing the chart, time spent during the visit, and time spent after the visit on documentation, reviewing laboratory results, diagnostic imaging, medications, performing a medically necessary evaluation, counseling on diagnoses, care coordination, ordering appropriate tests, ordering appropriate medications, review of tests performed by other providers, reporting test results with the patient, communication with other healthcare providers. [facility] Medical History (Updated 07/27/25 @ 14:24 by WILTON Ibrahim) Hip dysplasia Family History (Updated 07/27/25 @ 13:36 by Paola Sexton CMA) Mother FH: mental illness Bipolar 1 disorder Depression with anxiety Substance abuse Suicide attempt Alcoholism Social History (Updated 07/27/25 @ 13:37 by Paola Sexton CMA) Housing: House Housing Other:: Living with Dad Alcohol intake: never Patient Tobacco Use Status: Never used Tobacco e-Cigarette/Vaping Use: Currently Using Frequency of e-Cigarette/Vaping Use: Marijuana Second Hand Smoke Exposure: Yes Use of substances other than those prescribed or required for medical reasons: Yes Substance Use Type: Marijuana Substance Use Type Other:: Vapes Substance Use Frequency: Daily service: No Current occupational status: student 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; [employer] [place] Current occupational exposures/hazards: No Cognitive needs: No Hearing needs: No Vision needs: No Questionnaire Thrive Questionnaire Date Thrive assessed: 01/15/25 I am a: Patient What is your living situation today?: I have a steady place to live Within the past 12 months, did the food you bought not last and you didn't have the money to get more?: Never true Within the past 12 months, did you worry whether your food would run out before you got money to buy more?: Never true Do you have trouble paying for medicines?: No Do you have trouble getting transportation to medical appointments?: No Do you have trouble paying your heating and electricity bill?: No Do you have trouble taking care of your child, family member or friend?: No Do you have trouble with day-to-day activities such as bathing, preparing meals, shopping, managing finances, etc.?: No Are you currently unemployed and looking for a job?: No Are you interested in more education?: Yes Please select the resources that you would like help with: None Currently or been in a relationship where the following occur: No concerns reported THRIVE Score: 0 PATRICK-7 AMB Questionnaire PATRICK-7 Date PATRICK - 7 assessed: 01/22/25 Source: Developed by Drs. Franck Krishnan, Kristi Mcleod, Pancho Serna and colleagues, with an educational melida from [employer]. Physical exam (Primary Care) Vital Signs: Last Vital Signs Temp 97.9 F 07/27/25 13:37 Pulse 95 07/27/25 14:17 Resp 12 07/27/25 13:37 BP 118/72 07/27/25 13:37 Pulse Ox 97 07/27/25 13:37 Oxygen Delivery Method Room Air 07/27/25 13:37 BMI result Body Mass Index 25.3 Tobacco/Smoking Status: Tobacco use Status Tobacco use date assessed 01/22/25 07/27/25 13:31 Patient Tobacco Use Status Never used Tobacco 07/27/25 13:37 e-Cigarette/Vaping Use Currently Using 07/27/25 13:37 Thrive Assessment: Date of Thrive Assessment Date Thrive assessed 01/15/25 07/27/25 13:31 Currently or been in a relationship where the following occur: No concerns reported Coding Level of Care Code Est Pt Level 4 (02861) Complex EM visit Add On G2211 Diagnoses Marijuana use F12.90 PATRICK (generalized anxiety disorder) F41.1 Severe episode of recurrent major depressive disorder, without psychotic features F33.2 Major depression episode severity: severe Psychotic features: without psychotic features Influenza vaccination declined Z28.21 Smokers' cough J41.0 Immunization counseling Z71.85 Assessment & Plan Assessment & Plan (1) Marijuana use: Comment: Marijuana: Natural = Safe, Right? Marijuana is readily available to use in many states in the [place]. Understanding the possible risks of use is important to ensure the safety. No matter how you use marijuana (smoke it, eat it, or apply to your skin), it may cause problems with both short term and longterm use How marijuana affects your BRAIN: Potential effects from Short Term Use Poor focus, memory and reaction time Difficulty with problem solving Hallucinations, paranoia, anxiety Potential effects from Care Home Use Memory problems and trouble learning new things Depression, hallucinations, paranoia, anxiety, worsening PTSD symptoms addiction Brain. It is not safe to drive while on marijuana. It makes it hard to fire investigator distance, concentrate, react quickly to signals and sounds, be alert and coordinated. If alcohol is combined, this risk is even higher! In regular users, some of the effects from intermediate frame tender use may last for days or even weeks after stopping marijuana. How inhaling marijuana affects your LUNGS: Inhaling harmful chemicals Gases Small particles Carcinogens (toxins linked to cancer) Breathing problems similar to tobacco smokers Daily cough with mucus Difficulty breathing Lung infections (bronchitis, pneumonia) Lungs How marijuana affects your HEART: Increases risk of heart attack Within the first hour of smoking Increases heart rate 20?100% increase after smoking Increase lasts up to three hours Changes in heart rhythm Feels like your heart skips a beat, or is fluttering, or beating too fast or too slow Heart Is it SAFE to use marijuana with other medications? A combination that can be concerning is the use of opioids and/or benzodiazepines with marijuana. Opioids + Benzodiazepines + Marijuana: Drowsiness: All three can cause drowsiness. Reaction time: All three can reduce reaction time. Do not drive or operate machinery. Overdose: Opioids and Benzodiazepines can cause reduced breathing and in some cases, breathing can stop and a person can . Marijuana containing higher levels of THC may cause difficulty with thinking and memory and this could result in medication errors where extra doses of opioids, benzodiazepines, or other medications may be taken. What is the harm? Example of Opioids Morphine (MS Contin?, Edith?) Oxycodone (Percocet?, OxyContin?) Hydrocodone (Vicodin?, Glide?) Fentanyl (Duragesic?) Methadone Heroin Example of Benzodiazepines Lorazepam (Ativan?) Diazepam (Valium?) Alprazolam (Xanax?) Clonazepam (Klonopin?) If you have specific questions about the safety of using marijuana with other medications, please contact your provider or pharmacist. Some marijuana users can become addicted! You can have problems with marijuana withdrawal. You may have withdrawal symptoms the day after you stop using. These can get worse 2 to 3 days after using and can take 1 to 2 weeks or longer to go away. Recovery and Treatment Contact your provider or health care team if you are having concerns about your marijuana use or to learn more about available treatment services. The marijuana plant is not an FDA-approved medicine: The U.S. Food and Drug Administration (FDA) has not approved the marijuana plant as a medication due to lack of studies on the risks and benefits. Marijuana contains over 100 chemical substances known as cannabinoids. Some of these, like tetrahydrocannabinol (THC), have mind altering effects and can be intoxicating. Cannabidiol (CBD), another cannabinoid, does not cause the same ?high? users of THC experience. THC has been studied for the treatment of several conditions, including nausea and increasing appetite. CBD is similarly being studied for a number of conditions, including childhood epilepsy and inflammation. What is different between the marijuana product I get from the marijuana shop and a prescription from the pharmacy? The right dose of any medicine is important. A specific dose of THC is approved to treat nausea, but high doses of THC may cause vomiting. The ingredients in a medicine must be measured and stay the same from one dose to the next. The marijuana plant contains unknown ingredients that change from plant to plant. This makes it hard to control the ?dose? of marijuana needed to treat a condition and use it in the same way we use other medicines. Future studies are ongoing to establish the role of the marijuana plant and the cannabinoids found in the plant for treatment of medical conditions. If you have questions about using a marijuana product for a medical condition, please discuss this with your medical provider to determine the most appropriate treatment for you. VA Providers are not able to prescribe marijuana products. Information in this document was compiled by the Center of Excellence in Substance Abuse treatment and Education (CESTE). It contains information from factsheets by the National [place] on Drug Abuse (www.drugabuse.gov) and presentation by Radhika Corley, Radhika Ortega, & Jesika Goins (2010) entitled ?What providers need to know about cannabis use in Veterans with mental health conditions: Research, policy, practice,? and an additional reference: Mira Boone M.D., Francois Bell, Ph.D., Emile Son M.D., and Keysha Solorzano, Ph.D: Adverse Effects of Marijuana. N Engl J Med 2014; 370:4932-5549, April 12, 2014 DOI: 10.1056/QIYSez5515778. [place] PB Academic Detailing Service Code(s): F12.90 - Cannabis use, unspecified, uncomplicated Category: Medical (2) PATRICK (generalized anxiety disorder): Code(s): F41.1 - Generalized anxiety disorder Category: Medical (3) MDD (major depressive disorder), recurrent episode: Code(s): F33.9 - Major depressive disorder, recurrent, unspecified Category: Medical Qualifiers: Major depression episode severity: severe Psychotic features: without psychotic features Qualified Code(s): F33.2 - Major depressive disorder, recurrent severe without psychotic features (4) Influenza vaccination declined: Code(s): Z28.21 - Immunization not carried out because of patient refusal Category: Medical (5) Smokers' cough: Code(s): J41.0 - Simple chronic bronchitis Category: Medical (6) Immunization counseling: Code(s): Z71.85 - Encounter for immunization safety counseling Category: Medical Plan . Medications: New ipratropium-albuterol 20-100 mcg/actuation (Combivent Respimat) space evenly during waking hours 1 puff inhalation QID 4 grams 0RF
--- OUTSIDE RECORDS SUMMARY | 2025-07-27 13:33 | XMS_ITS | Encounter Summary ---
Author Organization [facility] Address [address] [place] [address] Phone Care Team Providers Care Joiner Name Role Phone Provider, Padmini GOMES Primary Care Provider [phone] Encounter Details Date Type Department Care Team (Late st Contact Info) Description 12/11/2011 Documentation [facility] [place] [place] Family Medicine [address] [place] [address] Family Medicine, Physician [address] [place], [place] [phone] Social History Tobacco Use Types Packs/Day Years [...] on filedocumented in this encounter Care Teams Joiner Relationship Specialty Start Date End Date Provider, MD Padmini [address] [place] [address] PCP - General Pediatrics 10/28/24 documented as of this encounter
--- OUTSIDE RECORDS SUMMARY | 2025-07-27 13:33 | XMS_ITS | Encounter Summary ---
Author Organization [facility] Address [address] [place] [phone] Phone Care Team Providers Care Computer Repair Technician Name Role Phone Provider, Padmini GOMES Primary Care Provider [phone] Encounter Details Date Type Department Care Team (Late st Contact Info) Description 06/24/2017 Conversion Encounter [facility] [place] [address] [place] [address] Social History Tobacco Use Types Packs/Day Years [...] on filedocumented in this encounter Care Teams Computer Repair Technician Relationship Specialty Start Date End Date Provider, MD Padmini [address] [place] [phone] PCP - General Pediatrics 10/28/24 documented as of this encounter
--- OUTSIDE RECORDS SUMMARY | 2025-07-27 13:33 | XMS_ITS | Encounter Summary ---
Author Organization [facility] Address [address] [place] [address] Phone Care Team Providers Care Director External Communications Name Role Phone Provider, Padmini GOMES Primary Care Provider [phone] Reason for Visit * Reason Comments Med Refill Encounter Details Date Type Department Care Team (Late st Contact Info) Description 10/20/2017 Refill [facility] - [address] [address] Aakash Storm MD Encounter for routine child [...] Primary documented in this encounter Care Teams Director External Communications Relationship Specialty Start Date End Date Provider, MD Padmini [address] [place] [address] PCP - General Pediatrics 10/28/24 documented as of this encounter
--- OUTSIDE RECORDS SUMMARY | 2025-07-27 13:33 | XMS_ITS | Encounter Summary ---
Author Organization [facility] Address [address] [place] [address] Phone Care Team Providers Care Bartender Manager Name Role Phone Provider, Padmini GOMES Primary Care Provider [phone] Reason for Visit * Reason Comments Med Refill Encounter Details Date Type Department Care Team (Late st Contact Info) Description 05/02/2021 Refill [facility] [address] [place] [address] Aakash Storm MD Menorrhagia with regular cycle; [...] Dysmenorrhea documented in this encounter Care Teams Bartender Manager Relationship Specialty Start Date End Date Provider, MD Padmini [address] [place] [phone] PCP - General Pediatrics 10/28/24 documented as of this encounter
--- OUTSIDE RECORDS SUMMARY | 2025-07-27 13:33 | XMS_ITS | Encounter Summary ---
Author Organization [facility] Address [address] [place] [address] Phone Care Team Providers Care Plant Machinist Name Role Phone Provider, Padmini GOMES Primary Care Provider [phone] Encounter Details Date Type Department Care Team (Late st Contact Info) Description 04/07/2017 Documentation [facility] [place] Family Medicine [address] [place] [address] Family Medicine, Physician [address], [place] [phone] Social History Tobacco Use Types Packs/Day Years [...] on filedocumented in this encounter Care Teams Plant Machinist Relationship Specialty Start Date End Date Provider, MD Padmini [address] [place] [phone] PCP - General Pediatrics 10/28/24 documented as of this encounter
--- OUTSIDE RECORDS SUMMARY | 2025-07-27 13:33 | XMS_ITS | Encounter Summary ---
Author Organization [facility] Address [address] [place] [address] Phone Care Team Providers Care Boat Ride Operator Name Role Phone Provider, Padmini GOMES Primary Care Provider [phone] Encounter Details Date Type Department Care Team (Late st Contact Info) Description 04/06/2017 Documentation [facility] [place] Family Medicine [address] [place] [address] Family Medicine, Physician [address], [place] [phone] Social History Tobacco Use Types Packs/Day Years [...] on filedocumented in this encounter Care Teams Boat Ride Operator Relationship Specialty Start Date End Date Provider, MD Padmini [address] [place] [address] PCP - General Pediatrics 10/28/24 documented as of this encounter
--- OUTSIDE RECORDS SUMMARY | 2025-07-27 13:33 | XMS_ITS | Encounter Summary ---
Author Organization [facility] Address [address] [place] [address] Phone Care Team Providers Care Clinical Reimbursement Specialist Name Role Phone Provider, Padmini GOMES Primary Care Provider [phone] Encounter Details Date Type Department Care Team (Late st Contact Info) Description 10/31/2010 [place]ation [facility] [place] [address] [place] [address] Family Medicine, Physician [address] [place] [phone] Social History Tobacco Use Types Packs/Day Years [...] on filedocumented in this encounter Care Teams Clinical Reimbursement Specialist Relationship Specialty Start Date End Date Provider, MD Padmini [address] [place] [phone] PCP - General Pediatrics 10/28/24 documented as of this encounter
--- OUTSIDE RECORDS SUMMARY | 2025-07-27 13:33 | XMS_ITS | Clinical Summary ---
Author Organization [facility] Address [address] [place] [phone] Phone Care Team Providers Care Nursing Clerk Name Role Phone Provider, Padmini GOMES Primary Care Provider [phone] Allergies No known active allergies Medications propranolol [...] it. Says did not like transition to [employer] (different than what she told me last [...] anxiety per mom and per assessment at [facility] (per mom, I have not seen it), also has had positive SCARED. Per TEACH rounds over noon with our therapist Jovani from [facility], should have behavioral consultation. Assessment & Plan (01/02/2020 2:14 PM EST): Would be difficult to address, unless we build more rapport Learning disability 03/10/2019 Overview (11/19/2020): Has IEP, performing behind grade level, especially in math. Now has a accounting tutor, mom's cousin, in [place]. Is not meeting with counselor weekly, no social skills group, no smaller classes. Emails teachers for help; some help, some do. One teacher said he wouldn't respond because she didn't use proper grammar. Assessment & Plan (10/22/2021 9:44 AM EST): Continue IEP Assessment & Plan (11/19/2020 4:40 PM EST): Will call Karlee Eric, email: [email or web address] Her was Romana's Special school based therapist in [facility]. Assessment & Plan (05/17/2020 11:09 AM EDT): [...] the basketball hoop. Take trips to a [employer] or health club with her Assessment & [...] (10/13/2017 2:07 PM EST): Suggest check by engineering intern Resolved Problems Problem Noted Date Diagnosed Date [...] now some risk of DJD per last [facility]'s note. Tends to sit a lot 10/28: Discharged from [facility]. Assessment & Plan (06/17/2021 10:18 AM EDT): Doing well. Follows up only prn at [facility]. Assessment & Plan (11/26/2020 3:36 PM EST): Now is fine, no further visits with [facility] required, but has led to concerns about her body integrity manifesting self as body image issues now. Counseled mom and Romana about this. Mom, a mental health professional, agreed. Assessment & Plan (12/09/2018 8:58 AM EST): See [facility] yearly Bipolar disorder, in partial remission, most recent episode depressed 10/13/2017 12/09/2018 Assessment & Plan (10/13/2017 2:06 PM EST): Follow up with psychiatrist, suggested Joey Ortega and stefano but mom wants someone to come to school, no therapist, suggested follow up with me but tough for mom to take time off from work. Encounters Date Type Department Care Team Description 05/31/2025 Telephone [facility] [place] [address] [place] [address] Provider, MD Padmnii medical records from Last 3 Months Immunizations [...] of Migraines, No family history of Sudden /IN under age 55, Family history of Depression, [...] Completed 03/10/2019, 06/02/2018 Procedures * Due to [place] state law, this organization might not be sharing sensitive test results. Procedure Name Priority Date/Time Associated Diagnosis Comments CHLAMYDIA AND GONORRHEA, AMPLIFIED Routine 06/17/2021 10:36 AM EDT Screening examination for bacterial and spirochetal disease from Last 3 Months or Most Recently Relevant to Health Maintenance Results * Due to [place] state law, this organization might not be sharing sensitive test results. * Chlamydia and Gonorrhoea, Amplified (06/17/2021 10:36 AM EDT) Chlamydia Trachomatis, DNA Probe NEGATIVE (NEG) [facility] Comment: No Chlamydia Trachomatis RNA detected in this patient's sample (REFERENCE RANGE/NORMAL VALUE: NOT DETECTED) Note: This test uses hourly associate- mediated amplification method to detect rRNA from C. Trachomatis URINE GC AMP PROBE NEGATIVE (NEG) [facility] Comment: No Neisseria Gonorrhoeae RNA detected in this patient's sample (REFERENCE RANGE/NORMAL VALUE: NOT DETECTED) NOTE: This test uses hourly associate-mediated amplification method to detect rRNA from N.Gonorrhoeae. [...] without risk of sexual abuse. Consult the [facility] if needed. Contact phone number . Therapeutic failure or success cannot be determined with the Aptima Combo2 assay since nucleic acid may persist following appropriate antimicrobial therapy. The Centers for Disease Control and Prevention (CDC) recommends confirmatory retesting using culture or a different nucleic acid amplification test when positive results occur, if indicated. Testing performed or reported by [facility], a Service of [facility], [address] [place] [address] Ben Goncalves MD, Label Printer Urine 06/17/2021 10:3 6 AM EDT 06/18/2021 1:35 AM EDT us Aakash Storm MD LAB MICROBIOLOGY - GENERAL OR DERABLES Final Result [facility] from Last 3 Months or Most Recently Relevant to Health Maintenance Care Teams Nursing Clerk Relationship Specialty Start Date End Date Provider, MD Padmini [address] [place] [id number] PCP - General Pediatrics 10/28/24
[2025-07-27 13:37] VITALS: BP 118/72; PULSE 113; RESP 12; TEMP 36.6; O2SAT 97; BMI 25.3
[2025-07-27 14:17] VITALS: PULSE 95
== END 2025-07-27 15:38 | disposition home or self-care (01) ==
LOC: HO.HMCFM 13:28
PROVIDERS: PCP Nurse Practitioner Family; Visit Provider Nurse Practitioner Family
DX: J41.0 Simple chronic bronchitis (principal); F12.90 Cannabis use, unspecified, uncomplicated; F33.2 Major depressive disorder, recurrent severe without psychotic features; F41.1 Generalized anxiety disorder; Z28.21 Immunization not carried out because of patient refusal; Z71.85 Encounter for immunization safety counseling